=== PATIENT | male | born 1965 | race Caucasian/White ===

== ENCOUNTER → 2017-12-08 09:42 | Outpatient (CLI) | payer OTHER, SELFPAY ==
[2017-12-08 10:35] LABS: Alanine Aminotransferase 28 U/L (12-78); Albumin Level 3.7 gm/dL (3.4-5.0); Albumin/Globulin Ratio 1.2 (1.1-1.8); Alkaline Phosphatase 61 U/L (46-116); Anion Gap 10.3 mEq/L (5-15); Aspartate Amino Transferase 16 U/L (15-37); Bilirubin,Total 0.6 mg/dL (0.2-1.0); Blood Urea Nitrogen 21 mg/dL (7-18); Calcium 8.9 mg/dL (8.5-10.1); Carbon Dioxide 28 mmol/L (21.0-32.0); Chloride 104 mmol/L (98-107); Chol/HDL Ratio 5.5 (1-3.5); Cholesterol 203 mg/dL (140-200); Creatinine,Serum 0.75 mg/dL (0.70-1.30); Estimated Glomerular Filt Rate 110 ml/min (>60); GFR (African American) 133 ML/MIN (>60); Globulin 3.1 gm/dl (1.3-3.2); Glucose 216 mg/dL (74-106); HDL Cholesterol 37 mg/dL (27-67); LDL Cholesterol 148 mg/dL (0-130); Potassium 4.3 mmoL/L (3.5-5.1); Sodium 138 mmol/L (136-145); Total Protein,Serum 6.8 gm/dL (6.4-8.2); Triglycerides 89 mg/dL (30-200); VLDL Cholesterol 18 mg/dL (0-40)
[2017-12-08 10:55] LABS: Hemoglobin A1C 9.8 % (0.0-7.0)
== END ==
PROVIDERS: PCP Physician Assistant; Visit Provider Physician Assistant
DX: E11.9 Type 2 diabetes mellitus without complications (principal); E78.5 Hyperlipidemia, unspecified; I10 Essential (primary) hypertension
CPT/HCPCS: 36415; 80053; 80061; 83036

== ENCOUNTER → 2021-07-11 15:10 | Outpatient (CLI) | payer OTHER, SELFPAY ==
--- NOTE | 2021-07-11 15:15 | XR_ITS ---
PROCEDURE: XR TOE RT MIN 2V CLINICAL INDICATION: TOE PAIN,RT 4th toe toe redness and swelling COMPARISON: No exams were available for comparison FINDINGS: There is mild diffuse soft tissue swelling about the 4th toe. The proximal middle and distal phalanx appear intact. There is no periosteal reaction and there is no air within the soft tissues. The remaining toes are unremarkable. IMPRESSION: Mild diffuse soft tissue swelling 4th toe consistent with cellulitis Dictated by: Dr. Noe Martinez MD 07/12/2021 09:05 Dr. Noe Martinez MD in [place] 07/12/2021 09:05
== END ==
PROVIDERS: PCP Family Medicine; Visit Provider Family Medicine
DX: M79.674 Pain in right toe(s) (principal)
CPT/HCPCS: 73660

== ENCOUNTER → 2021-10-17 13:05 | Outpatient (CLI) | payer OTHER, SELFPAY ==
[2021-10-17 14:06] LABS: Adenovirus,PCR Not Detected (NotDetected); Bordetella Pertussis Not Detected (NotDetected); Chlamydophila Pneumoniae, PCR Not Detected (NotDetected); Coronavirus 229E Not Detected (NotDetected); Coronavirus NL63 Not Detected (NotDetected); Coronavirus OC43 Not Detected (NotDetected); Coronovirus HKU1,PCR Not Detected (NotDetected); Human Metapneumovirus Not Detected (NotDetected); Influenza A, PCR Not Detected (NotDetected); Influenza AH1, 2009 Not Detected (NotDetected); Influenza AH1, PCR Not Detected (NotDetected); Influenza AH3,PCR Not Detected (NotDetected); Influenza B, PCR Not Detected (NotDetected); Mycoplasma Pneumoniae, PCR Not Detected (NotDetected); Parainfluenza 1, PCR Not Detected (NotDetected); Parainfluenza 2, PCR Not Detected (NotDetected); Parainfluenza 3, PCR Not Detected (NotDetected); Parainfluenza 4, PCR Not Detected (NotDetected); Respiratory Syncytial Virus Not Detected (NotDetected); Rhinovirus/Enterovirus Not Detected (NotDetected)
[2021-10-17 14:18] LABS: Basophils # 0.3 K/mm3 (0-0.2); Basophils % 5.3 % (0.1-2.0); Eosinophils # 0.1 K/mm3 (0.0-0.4); Eosinophils % 1.1 % (0.1-12.0); Hematocrit 50.2 % (42.0-52.0); Lymphocytes # 1.2 K/mm3 (0.7-4.5); Lymphocytes % 22.5 % (10-50); Mean Corpuscular HGB Conc 31.9 g/dL (31.8-35.4); Mean Corpuscular Hemoglobin 27.8 pg (27.0-31.2); Mean Corpuscular Volume 87.3 fl (80-94); Mean Platelet Volume 7.3 fl (7.4-10.4); Monocytes # 0.7 K/mm3 (0.1-1.0); Monocytes % 12.7 % (1.7-9.3); Neutrophils # 3.5 K/mm3 (1.8-7.8); Neutrophils % 63.7 % (37.0-80.0); Platelet Count 259 K/mm3 (142-424); Red Blood Count 5.75 M/mm3 (4.60-6.20); Red Cell Distribution Width 13.4 % (11.5-17.5); White Blood Count 5.5 K/mm3 (4.8-10.8)
== END ==
PROVIDERS: PCP Family Medicine; Visit Provider Nurse Practitioner
DX: U07.1 COVID-19 (principal)
CPT/HCPCS: 36415; 85025; 87486; 87581; 87632; 87798; C9803; U0003; U0005

== ENCOUNTER 2022-05-06 18:11 | Inpatient (IN) | payer OTHER, SELFPAY ==
[2022-05-06] VITALS (10 sets, daily range): BP systolic 110–141; BP diastolic 63–79; PULSE 70–84; RESP 12–18; TEMP 36.5–37.2; O2SAT 96–98; BMI 37.5; BMI 34.8
--- NOTE | 2022-05-06 18:11 | ECG_ITS ---
APPROVED REPORT Exam: Resting ECG HR:81 bpm ECG Measurements Heart Rate 81 AXES NM 178 P 56 QRSd 88 QRS 41 QT 317 T 3 QTc 355 Conclusion SINUS RHYTHM NONSPECIFIC T-WAVE ABNORMALITY BORDERLINE ECG UNCONFIRMED REPORT Electronically signed by : Silverio Meier MD 05/09/2022 21:31:25
--- NOTE | 2022-05-06 18:16 | HMH.EDGENADL ---
ED Disposition Clinical Impression: Non-ST elevated myocardial infarction Disposition: Admitted As Inpatient Condition on Discharge: Good Referrals: Sage Holland MD [Primary Care Provider] - - Critical Care Critical Care Time: No Attestation: On , the high probability of a clinically significant, sudden or life threatening deterioration of the following system(s) required my full and direct attention, intervention and personal management. The time I documented below is in addition to time spent performing reported procedures but includes the following listed in this critical care notation. Medical Decision Making - Jw Inquiry Pt receiving controlled substance: No Vital Signs: 05/06/22 18:13 05/06/22 18:19 05/06/22 18:26 Temperature 98.9 F Temperature Source Oral Pulse Rate 82 76 Pulse Rate [Radial] 84 Respiratory Rate 18 12 12 Blood Pressure 141/79 H 115/70 Blood Pressure [Right Arm] 141/79 H Blood Pressure Mean 85 Blood Pressure Mean [Right Arm] 99 Blood Pressure Source [Right Arm] Automatic Cuff Blood Pressure Position [Right Arm] Sitting 02 Sat by Pulse Oximetry 98 97 96 Oxygen Delivery Method Room Air Room Air Room Air 05/06/22 18:41 05/06/22 18:56 Temperature Temperature Source Pulse Rate 79 78 Pulse Rate [Radial] Respiratory Rate 13 Blood Pressure 110/63 115/67 Blood Pressure [Right Arm] Blood Pressure Mean 78 73 Blood Pressure Mean [Right Arm] Blood Pressure Source [Right Arm] Blood Pressure Position [Right Arm] 02 Sat by Pulse Oximetry 97 96 Oxygen Delivery Method Room Air - Lab Data Lab Results 05/06/22 18:17: WBC 8.9, RBC 5.48, Hgb 15.2, Hct 48.1, MCV 87.7, MCH 27.8, MCHC 31.7 L, RDW 13.3, Plt Count 312, MPV 7.5, Neut % (Auto) 67.4, Lymph % (Auto) 21.3, [place] % (Auto) 6.5, Eos % (Auto) 3.1, Baso % (Auto) 1.7, Neut # (Auto) 6.0, Lymph # (Auto) 1.9, [place] # (Auto) 0.6, Eos # (Auto) 0.3, Baso # (Auto) 0.2 05/06/22 18:17: Sodium 136, Potassium 4.4, Chloride 101, Carbon Dioxide 28, Anion Gap 11.0, BUN 21 H, Creatinine 1.00, Estimated Creat Clear 148, Estimated GFR 78, Est GFR ( Amer) 94, Glucose 174 H, Calcium 8.6, Troponin I 0.08 H 05/06/22 19:15: SARS-CoV-2 (PCR) Not detected, Influenza A Untype (PCR) Not detected, Influenza Type B (PCR) Not detected Result diagrams: 05/06/22 18:17 05/06/22 18:17 Orders (Tests/Meds): ED MEDICATIONS Generic Name Dose Route Start Last Admin Trade Name Freq PRN Reason Stop Dose Admin Nitroglycerin 1 gm 05/06/22 19:30 05/06/22 19:25 Nitroglycerin 1 Gm Ointment TD 06/05/22 19:29 1 gm Q6H BENEDICTO Administration Sodium Chloride 10 ml 05/06/22 18:34 Sodium Chloride 0.9% 10ml Flush Syringe IV 06/05/22 18:33 NEEDED PRN Maintain IV Site Discontinued Medications Generic Name Dose Route Start Last Admin Trade Name Freq PRN Reason Stop Dose Admin Aspirin 162 mg 05/06/22 19:21 05/06/22 19:25 Aspirin 81mg Chewable Tablet PO 05/06/22 19:22 162 mg ONCE ONE Administration Ticagrelor 180 mg 05/06/22 19:21 05/06/22 19:25 Ticagrelor 90mg Tablet PO 05/06/22 19:22 180 mg ONCE ONE Administration ORDERS Category Date Time Status Troponin I Q3H Lab 05/06/22 21:45 Ordered Troponin I Q3H Lab 05/07/22 00:45 Ordered - Radiology Data #1 Image(s): Chest Image Reviewed: Yes I have reviewed radiologist's interpretation Ordering Physician: Darren Lucero MD Date of Service: 05/06/22 Procedure(s): XR chest portable Accession Number(s): [id number] cc: Sage Holland MD; Jose Eagle MD~ PROCEDURE INFORMATION: Exam: XR Chest Exam date and time: 05/06/22 06:50 PM Age: 57 years old Clinical indication: Pain; Chest pressure; Additional info: Chest pain TECHNIQUE: Imaging protocol: Radiologic exam of the chest. Views: 1 view. COMPARISON: No relevant prior studies available. FINDINGS: Lungs: Unremarkable. No consolidation.
--- NOTE | 2022-05-06 18:34 | XR_ITS ---
PROCEDURE INFORMATION: Exam: XR Chest Exam date and time: 05/06/22 06:50 PM Age: 57 years old Clinical indication: Pain; Chest pressure; Additional info: Chest pain TECHNIQUE: Imaging protocol: Radiologic exam of the chest. Views: 1 view. COMPARISON: No relevant prior studies available. FINDINGS: Lungs: Unremarkable. No consolidation. Pleural spaces: Unremarkable. No pleural effusion. No pneumothorax. Heart/Mediastinum: Unremarkable. No cardiomegaly. Bones/joints: Unremarkable. IMPRESSION: No acute findings.
[2022-05-06 18:40] LABS: Chloride 101 mmol/L (98-107); Sodium 136 mmol/L (136-145)
[2022-05-06 18:41] LABS: Potassium 4.4 mmoL/L (3.5-5.1)
[2022-05-06 18:42] LABS: Basophils # 0.2 K/mm3 (0-0.2); Basophils % 1.7 % (0.1-2.0); Eosinophils # 0.3 K/mm3 (0.0-0.4); Eosinophils % 3.1 % (0.1-12.0); Hematocrit 48.1 % (42.0-52.0); Hemoglobin 15.2 g/dL (14.1-18.0); Lymphocytes # 1.9 K/mm3 (0.7-4.5); Lymphocytes % 21.3 % (10-50); Mean Corpuscular HGB Conc 31.7 g/dL (31.8-35.4); Mean Corpuscular Hemoglobin 27.8 pg (27.0-31.2); Mean Corpuscular Volume 87.7 fl (80-94); Mean Platelet Volume 7.5 fl (7.4-10.4); Monocytes # 0.6 K/mm3 (0.1-1.0); Monocytes % 6.5 % (1.7-9.3); Neutrophils % 67.4 % (37.0-80.0); Platelet Count 312 K/mm3 (142-424); Red Blood Count 5.48 M/mm3 (4.60-6.20); Red Cell Distribution Width 13.3 % (11.5-17.5); White Blood Count 8.9 K/mm3 (4.8-10.8)
[2022-05-06 18:44] LABS: Calcium 8.6 mg/dl (8.4-10.2); Carbon Dioxide 28 mmol/L (22.0-30.0); Glucose 174 mg/dl (74-100)
--- NOTE | 2022-05-06 18:44 | PC.NURSE ---
XR AT BEDSIDE
[2022-05-06 18:56] LABS: Troponin I 0.08 ng/ml (0.00-0.034)
--- NOTE | 2022-05-06 19:06 | PC.NURSE ---
ER at for patient eval; family at BS
[2022-05-06 19:08] LABS: Blood Urea Nitrogen 21 mg/dl (9-20); Creatinine Clearance Estimated 148 mL/min (50-200); Estimated Glomerular Filt Rate 78 ml/min (>60); GFR (African American) 94 ML/MIN (>60)
--- NOTE | 2022-05-06 19:11 | PC.NURSE ---
1903 ED MD AT BEDSIDE FOR EVALUATION
--- NOTE | 2022-05-06 19:11 | PC.NURSE ---
Paged Dr. Claudio at this time
--- NOTE | 2022-05-06 19:17 | PC.NURSE ---
ER speaking with Dr Claudio at this time
--- NOTE | 2022-05-06 19:19 | PC.NURSE ---
ER speaking with pt at this time
[2022-05-06 19:27] LABS: Coronavirus 19, PCR Not Detected (NotDetected); Influenza A, PCR Not Detected (NotDetected); Influenza B, PCR Not Detected (NotDetected)
--- NOTE | 2022-05-06 20:00 | PC.NURSE ---
ER speaking with pt at this time
--- NOTE | 2022-05-06 20:25 | PC.NURSE ---
PATIENT ADMITTED OBS TO [address] ABEBE WITH DX OF NSTEMI
--- NOTE | 2022-05-06 21:01 | PC.NURSE ---
patient up to floor via wheelchair @ this time.
[2022-05-06 22:19] LABS: Troponin I 3.72 ng/ml (0.00-0.034)
--- NOTE | 2022-05-06 22:20 | PC.NURSE ---
DR. ACUNA IN TO SEE PATIENT. SECOND TROP 3.72 ORDER TO MOVE TO STEPDOWN. PATIENT MOVED TO 218
--- NOTE | 2022-05-06 22:27 | PC.NURSE ---
Pt transferred to [facility], room 218 at this time.
--- NOTE | 2022-05-06 22:27 | HMH.HP ---
*Admission Date: 05/06/22 *Chief complaint: Chest pain *History of present illness: This 56-year-old white male diabetic was working on his tractor today and developed chest pain with radiation to the left arm. He was already diaphoretic. He developed nausea but did not vomit. His family convinced him to come to the emergency room. He was evaluated there and found to have troponin elevation. He is admitted for cardiology consultation. Dr. Claudio has been consulted and is aware of the case. He plans cardiac catheterization in the morning. The patient has been primarily pain-free since his presentation in the emergency room. He is receiving topical night true glycerin. He is receiving blood Brilinta x1 and anticipation of cardiac cath in the morning. He has received aspirin. He has a family history of heart disease and diabetes. He is a former smoker. He has not smoked since October 2011. He is diabetic but does not follow his blood sugars closely. He was last seen by Dr. Holland in July 2021. 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 [facility] History Medical History: Reports:: Diabetes Mellitus Type 2, Hypertension *Have you ever received a pneumonia vaccine?: No *Have you received a flu vaccine this season?: No Other Medical History: Reports: Cataracts Laterality Cases: Bilateral: Arthroscopy Shoulder Other Surgeries: Yes: Colonoscopy (2016), Other Amputation: No Fractures: No - *Social History Last grade of school completed: GED Smoking Status: Former smoker (Quit 2011) Tobacco Type: cigarettes # Packs/Day (cigarettes): 3 Alcohol Intake: never Substance Use Type: denies use *Occupational Status:: employed Housing: apartment Household Members: spouse *Travel in the last 8 weeks: None Family Hx:: Coronary Artery Disease (in his father), Diabetes (In his mother), Heart Attack (A sister), Hypertension Review of Systems - Constitutional Reports fatigue (Reports increased fatigue lately), Denies body ache(s), Denies chills - Eyes Denies blurry vision, Denies change in vision - ENT Reports hearing loss (He does seem to have some hearing loss) - *Cardiovascular Reports chest pain (Just today), Denies shortness of breath, Denies irregular heart rhythm, Denies rapid, pounding, or irregular heartbeat - *Respiratory Denies chest congestion, Denies cough (He did have COVID in September 2021) - *Gastrointestinal Denies abdominal pain, Denies difficulty swallowing - *Genitourinary Denies difficulty urinating - *Musculoskeletal Denies joint pain - Integumentary/Breasts Reports lesions (Recurrent excoriation in the umbilicus area), Denies bleeding lesions - *Neurologic Denies abnormal walking, Denies abnormal speech, Denies seizure-like activity - Psychiatric Denies depression - Endocrine Denies excessive sweating Meds Home Medications Medication Instructions Recorded Confirmed Type dapagliflozin 5 mg tablet 10 mg PO DAILY 05/03/19 05/06/22 History glimepiride 1 mg tablet 4 mg PO BID 05/03/19 05/06/22 History metformin 500 mg tablet 500 mg PO BID 05/03/19 05/06/22 History Dulaglutide [Trulicity] 1.5 mg SQ WEEKLY 05/06/22 05/06/22 History lisinopriL [Lisinopril] 20 mg PO DAILY 05/06/22 05/06/22 History Allergies Allergy/AdvReac Type Severity Reaction Status Date / Time No Known Allergies Allergy Verified 03/22/22 16:17 Exam Vital signs and Labs for Last 24 Hours: Temp Pulse Resp BP Pulse Ox 97.7 F 81 18 115/67 96 05/06/22 21:17 05/06/22 21:17 05/06/22 21:17 05/06/22 21:17 05/06/22 21:51 Laboratory Results - last 24 hr 05/06/22 18:17: WBC 8.9, RBC 5.48, Hgb 15.2, Hct 48.1, MCV 87.7, MCH 27.8, MCHC 31.7 L, RDW 13.3, Plt Count 312, MPV 7.5, Neut % (Auto) 67.4, Lymph % (Auto) 21.3, [place] % (Auto) 6.5, Eos % (Auto) 3.1, Baso % (Auto) 1.7, Neut # (Auto) 6.0, Lymph # (Auto) 1.9, [place] # (Auto) 0.6, Eos # (Auto) 0.3, Baso # (Auto) 0.2 05/06/22 18:17: So
[2022-05-06 22:49] LABS: Hemoglobin A1C 8.3 % (4.0-6.0)
--- NOTE | 2022-05-06 22:55 | PC.NURSE ---
Report given to Yong Duarte RN at this time to assume pt care.
[2022-05-07] VITALS (15 sets, daily range): BP systolic 95–146; BP diastolic 53–72; PULSE 70–95; RESP 16–20; TEMP 36.7–37.1; O2SAT 94–97; BMI 34.8
--- NOTE | 2022-05-07 01:18 | PC.NURSE ---
Lab notified with critical lab trop . Paged / to notify at this time.
--- NOTE | 2022-05-07 05:27 | PC.NURSE ---
Pt has rested well throughout night. Pt reports 0/10 chest pain/discomfort thus far in shift. Pt ambulates to bathroom independently to void. Pt remains on RA. Telemetry has shown normal sinus rhythm throughout shift. HR has been 74-95. Pt's has remained at bedside.
[2022-05-07 07:21] LABS: Chloride 105 mmol/L (98-107)
[2022-05-07 07:22] LABS: Potassium 4.3 mmoL/L (3.5-5.1); Sodium 137 mmol/L (136-145)
[2022-05-07 07:24] LABS: Alanine Aminotransferase 21 U/L (12-78); Alkaline Phosphatase 69 U/L (38-126); Anion Gap 6.3 mEq/L (5-15); Aspartate Amino Transferase 62 U/L (17-59); Bilirubin,Total 0.5 mg/dl (0.2-1.3); Carbon Dioxide 30 mmol/L (22.0-30.0); Cholesterol 177 mg/dl (140-200); Triglycerides 154 mg/dl (30-150); VLDL Cholesterol 31 mg/dL (0-40)
[2022-05-07 07:25] LABS: Albumin Level 3.5 g/dl (3.5-5.0); Albumin/Globulin Ratio 1.3 (1.1-1.8); Calcium 8.1 mg/dl (8.4-10.2); Chol/HDL Ratio 6.3 (1-3.5); Globulin 2.7 g/dL (1.3-3.2); Glucose 158 mg/dl (74-100); HDL Cholesterol 28 mg/dl (40-60); Total Protein,Serum 6.2 g/dl (6.3-8.2)
[2022-05-07 08:04] LABS: Blood Urea Nitrogen 19 mg/dl (9-20); Creatinine Clearance Estimated 153 mL/min (50-200); Estimated Glomerular Filt Rate 88 ml/min (>60); GFR (African American) 106 ML/MIN (>60)
--- NOTE | 2022-05-07 10:22 | ECG_ITS ---
APPROVED REPORT Exam: Resting ECG HR:77 bpm ECG Measurements Heart Rate 77 AXES LA 180 P 31 QRSd 84 QRS 15 QT 336 T 11 QTc 367 Conclusion SINUS RHYTHM NORMAL ECG UNCONFIRMED REPORT Electronically signed by : Silverio Meier MD 05/07/2022 19:02:41
--- NOTE | 2022-05-07 10:44 | PC.WOUNDNOTE ---
NOTIFIED CARDIOLOGY PER TO ASK IF THEY WERE GOING TO SEE PT TODAY. STATED HE WOULD SEE PT THIS EVENING AND IT WAS OKAY FOR PT TO HAVE A REGULAR DIET AND HE DID NOT WANT PT TO BE NPO. STATED PT WILL NOT HAVE A HEART CATH TODAY AND HE WANTED TO CONTINUE CURRENT MEDICATION REGIMEN.
--- NOTE | 2022-05-07 13:57 | HMH.ACPN2 ---
Internal Medicine - PN: Subj *Date: 05/07/22 *Time: 13:57 Interval history: The patient was admitted yesterday from the ER with chest pain with radiation to left arm and sequentially elevated troponins. The patient was started on Brillinta with stated plans for cardiac catheterization 8 AM. This is the nursing note from this morning: NOTIFIED CARDIOLOGY PER TO ASK IF THEY WERE GOING TO SEE PT TODAY. STATED HE WOULD SEE PT THIS EVENING AND IT WAS OKAY FOR PT TO HAVE A REGULAR DIET AND HE DID NOT WANT PT TO BE NPO. STATED PT WILL NOT HAVE A HEART CATH TODAY AND HE WANTED TO CONTINUE CURRENT MEDICATION REGIMEN. The patient stated that he was able to sleep. He states that he feels well today. He complains of feeling warm. His blood pressure and heart rhythm have been stable. He is not had ectopics. He is not been short of breath and has had no chest pain. Exam Vital signs and Labs for Last 24 Hours: Temp Pulse Resp BP Pulse Ox 98.3 F 83 20 108/56 L 94 L 05/07/22 11:40 05/07/22 12:00 05/07/22 12:00 05/07/22 12:00 05/07/22 12:00 Laboratory Results - last 24 hr 05/06/22 18:17: WBC 8.9, RBC 5.48, Hgb 15.2, Hct 48.1, MCV 87.7, MCH 27.8, MCHC 31.7 L, RDW 13.3, Plt Count 312, MPV 7.5, Neut % (Auto) 67.4, Lymph % (Auto) 21.3, [place] % (Auto) 6.5, Eos % (Auto) 3.1, Baso % (Auto) 1.7, Neut # (Auto) 6.0, Lymph # (Auto) 1.9, [place] # (Auto) 0.6, Eos # (Auto) 0.3, Baso # (Auto) 0.2 05/06/22 18:17: Sodium 136, Potassium 4.4, Chloride 101, Carbon Dioxide 28, Anion Gap 11.0, BUN 21 H, Creatinine 1.00, Estimated Creat Clear 148, Estimated GFR 78, Est GFR ( Amer) 94, Glucose 174 H, Calcium 8.6, Troponin I 0.08 H 05/06/22 18:17: Hemoglobin A1c 8.3 H 05/06/22 19:15: SARS-CoV-2 (PCR) Not detected, Influenza A Untype (PCR) Not detected, Influenza Type B (PCR) Not detected 05/06/22 21:50: Troponin I 3.72 H 05/07/22 00:45: Troponin I 10.90 H 05/07/22 06:56: Sodium 137, Potassium 4.3, Chloride 105, Carbon Dioxide 30, Anion Gap 6.3, BUN 19, Creatinine 0.90, Estimated Creat Clear 153, Estimated GFR 88, Est GFR ( Amer) 106, Glucose 158 H, Calcium 8.1 L, Total Bilirubin 0.5, AST 62 H, ALT 21, Alkaline Phosphatase 69, Total Protein 6.2 L, Albumin 3.5, Globulin 2.7, Albumin/Globulin Ratio 1.3, Triglycerides 154 H, Cholesterol 177, VLDL Cholesterol 31, HDL Cholesterol 28 L, Cholesterol/HDL Ratio 6.3 H I & O for Last 24 hours: Intake & Output 05/05/22 05/06/22 05/07/22 05/08/22 11:59 11:59 11:59 11:59 Intake Total 480 / 480 720 / 720 Balance 480 / 480 720 / 720 Weight 257 lb 6.517 oz - *Routine HEENT Exam Head: Present: normocephalic Eye: Present: EOMI, PERRL ENT: Present: mucous membranes moist - *Routine Neck Exam Present: supple. Absent: JVD, carotid bruit, lymphadenopathy - *Routine Respiratory Exam Present: CTA bilaterally - *Routine Cardiovascular Exam Present: RRR, S4. Absent: murmur, tachycardia, irregular rhythm, ectopic - *Routine Abdominal Exam Present: soft, normoactive bowel sounds, obese. Absent: tenderness - *Routine Extremities Exam Absent: cyanosis, clubbing, edema (Only trace) - *Routine Skin Exam Present: warm. Absent: rash - *Routine Neurological Exam Present: alert, oriented X3 Assessment and Plan (1) Non-ST elevated myocardial infarction Status: Acute Category: Medical Code(s): I21.4 - Non-ST elevation (NSTEMI) myocardial infarction (2) Type 2 diabetes mellitus Status: Acute Category: Medical Code(s): E11.9 - Type 2 diabetes mellitus without complications (3) Hypertension Status: Acute Category: Medical Code(s): I10 - Essential (primary) hypertension - Assessment and plan all Dx Assessment and Plan for all problems:: Continue present regimen. Further plans per cardiology.
--- NOTE | 2022-05-07 14:28 | P.CONPHA_ITS ---
[facility] Pharmacy VTE Monitoring - Patient Demographics Admission date: 05/07/22 Report Date: 05/07/22 Time: 14:28 Allergies/Adverse Reactions: Patient Allergies No Known Allergies Allergy (Verified 03/22/22 16:17) Height: 1.83 m Weight: 116.758 kg Patient Problems: Current Active Problems Non-ST elevated myocardial infarction (Acute) Type 2 diabetes mellitus (Acute) Hypertension (Acute) - VTE Risk Labs: VTE Related Lab Results Hgb 15.2 g/dL (14.1-18.0) 05/06/22 18:17 Hct 48.1 % (42.0-52.0) 05/06/22 18:17 Plt Count 312 K/mm3 (142-424) 05/06/22 18:17 BUN 19 mg/dl (9-20) 05/07/22 06:56 Creatinine 0.90 mg/dl (0.66-1.25) 05/07/22 06:56 Estimated Creat Clear 153 mL/min (50-200) 05/07/22 06:56 - Prophylaxis Types of VTE Prophylaxis: Pharmacological Pharmacologic Type: Enoxaparin
--- NOTE | 2022-05-07 16:53 | PC.NURSE ---
PT IS RESTING IN BED. NO COMPLAINTS OF CHEST PAIN OR SOA. ALERT AND ORIENTED X4. PT STATES HE FEELS REALLY GOOD. LUNG SOUNDS CLEAR. ABDOMEN SOFT/NON TENDER WITH ACTIVE BOWEL SOUNDS. EATING AND DRINKING WELL. PT AMBULATES TO THE BATHROOM. NSR ON TELEMETRY. VSS. WILL CONTINUE TO MONITOR.
[2022-05-07 20:14] LABS: POC Glucose,Bedside 253 (70-110)
[2022-05-08] VITALS (25 sets, daily range): BP systolic 106–160; BP diastolic 51–92; PULSE 60–80; RESP 16–20; TEMP 36.1–36.7; O2SAT 93–98; BMI 36.3
--- NOTE | 2022-05-08 | IR_ITS ---
APPROVED REPORT Patient Location: Inpatient [employer]: MAIA Brown RT (R) PROCEDURES Selective coronary angiogram Drug-eluting stent deployment to the ostial proximal mid dominant right coronary INDICATION Acute non-ST elevation myocardial infarction, Coronary artery disease, Informed consent was obtained prior to the procedure. COMPLICATIONS NONE Estimated Blood Loss: LESS THAN 10 ML TECHNIQUE One percent lidocaine used to anesthetize the right anterior aspect of the wrist. The right radial artery was accessed via the Seldinger technique. A 6 [place] sheath was placed in the right radial artery. 2.5 mg of verapamil, 800 mcg of nitroglycerin, 1mg Lidocaine and 5000 U Heparin were given through the arterial sheath. The papa catheter was also used to perform selective coronary angiogram. At the end the diagnostic angiogram therapeutic heparin was administered giving a therapeutic ACT and the guide catheter was placed in the right coronary followed by a Choice PT extra-support wire. A 5 mm x 30 mm resolute Ab stent was deployed at 15 tony reducing the critical stenosis to 0%. An additional 5 mm x 22 mm resolute Ab stent was placed proximal to the first stent yet still overlapping it and then deployed at 18 tony reducing the stenosis to 0%. 800 mcg of intracoronary nitroglycerin was administered. The wire was pulled back and repeat angiography demonstrated excellent and wide patency of the stent with excellent distal transitioning. At the end the procedure the apparatus was removed the sheath was removed good hemostasis was achieved using TR banding patient was transferred to the postop putting in stable condition ANGIOGRAPHIC RESULTS The left main artery Normal The left anterior descending artery Has proximal 20% stenosis with a mid vessel 30 to 40% stenosis. The circumflex artery Is nondominant yet still large vessel and gives rise to a moderate to large high first obtuse marginal artery which has a proximal eccentric 80% stenosis. The large second obtuse marginal artery has proximal and mid vessel 30 and 40% diffuse stenoses The right coronary artery Is a large dominant vessel and has a critical proximal 90% stenosis followed by a large thrombus which extends throughout the mid segment. Distally the posterior descending artery has 10 to 20% stenosis with a posterior lateral branch has eccentric 20 to 30% stenosis The [place] ventriculogram reveals Not performed The left ventricular end-diastolic pressure Not measured IMPRESSION Critical proximal dominant right coronary artery stenosis as described above with successful stenting of the ostial proximal and mid segment reducing the critical stenosis to 0% with 2 contiguous drug-eluting stents Persistent severe stenosis in a large proximal first obtuse marginal artery/ramus intermedius Diffuse moderate disease as described above PLAN 1. Brilinta 90 twice daily plus aspirin 81 mg daily 2. LDL less than 55 to be achieved with high intensity statin 3. Beta-blockers JOSEPH inhibitors 4. Avoidance of tobacco products 5. Cardiac rehabilitation 6. Recommend stress test in 6 weeks to determine if the large ramus intermedius produces significant ischemia. If so this vessel should be revascularized Electronically signed by : Lavon Claudio MD 05/08/2022 10:47:28
--- NOTE | 2022-05-08 04:08 | PC.NURSE ---
Pt A&O x4. Has rested well this shift. Denies any soa or discomfort. VSS. NSR on telemetry. Pt has ambulated to BR x1 and tolerated well. Medications administered per mar. Cardiac consult this AM. Call light within reach. Family at bedside.
--- NOTE | 2022-05-08 08:18 | HMH.ACPN2 ---
Internal Medicine - PN: Subj *Date: 05/08/22 *Time: 08:18 Interval history: Patient states he did sleep some last night. He denies any chest discomfort and shortness of breath. He is ambulated to the bathroom without difficulty. He is awaiting cardiology visit. Exam Vital signs and Labs for Last 24 Hours: Temp Pulse Resp BP Pulse Ox 97.3 F L 73 16 108/65 L 94 L 05/08/22 04:00 05/08/22 06:00 05/08/22 06:00 05/08/22 06:00 05/08/22 06:00 Laboratory Results - last 24 hr 05/07/22 19:59: POC Glucose 253 H I & O for Last 24 hours: Intake & Output 05/05/22 05/06/22 05/07/22 05/08/22 11:59 11:59 11:59 11:59 Intake Total 480 / 480 1680 / 1680 Balance 480 / 480 1680 / 1680 Weight 257 lb 6.517 oz 268 lb 4 oz - Constitutional no acute distress Comments: Appears comfortable - *Routine Respiratory Exam Present: CTA bilaterally (Anteriorly and posteriorly) - *Routine Cardiovascular Exam Present: RRR - *Routine Abdominal Exam Present: soft, normoactive bowel sounds. Absent: tenderness, distended - *Routine Extremities Exam Present: pulses intact. Absent: edema, calf tenderness - *Routine Neurological Exam Present: alert, oriented X3 Assessment and Plan (1) Non-ST elevated myocardial infarction Status: Acute Category: Medical Code(s): I21.4 - Non-ST elevation (NSTEMI) myocardial infarction (2) Type 2 diabetes mellitus Status: Acute Category: Medical Code(s): E11.9 - Type 2 diabetes mellitus without complications (3) Hypertension Status: Acute Category: Medical Code(s): I10 - Essential (primary) hypertension - Assessment and plan all Dx Assessment and Plan for all problems:: Cardiology to see today and will follow their direction.
--- NOTE | 2022-05-08 08:48 | PC.NURSE ---
Pt is off floor for procedure
[2022-05-08 09:59] LABS: CATHL Activated Clotting Time 277 SEC (74-125)
--- NOTE | 2022-05-08 10:52 | HMH.CNCARD ---
History of Present Illness Consult date: 05/08/22 Requesting physician: Sage Holland Consult reason: chest pain Chief complaint: chest pain History of present illness: This is a 56-year-old white gentleman who presented to the emergency department with complaints of chest pain. The patient states that he was out working on his tractor on Sunday and afterwards he had sudden onset of chest pain. He describes this as a pressure sensation in the substernal aspect of his chest and radiated to his left arm and his left shoulder blade. He was nauseated and diaphoretic. The patient denied having any shortness of breath. He states that his family talked him into coming to the emergency department. He states that it lasted for a little bit of time but he was unable to rate the pain. He states that he kind of just walked the pain off and felt better. After arriving at the emergency department the patient was found to have a non-ST elevation myocardial infarction with a troponin max of 10.90. He denies any chest pain or pressure this morning. He denies any shortness of breath or edema. He denies any fever, chills, nausea, vomiting, diarrhea, PND or orthopnea. The patient does have a family history of heart disease in his sister. He is a former smoker. The patient does have hypertension, hyperlipidemia and diabetes. [facility] History I have reviewed the patient's past medical history: Yes Medical History: Reports:: Diabetes Mellitus Type 2, Hyperlipidemia, Hypertension *Have you ever received a pneumonia vaccine?: No *Have you received a flu vaccine this season?: No Other Medical History: Reports: Cataracts Laterality Cases: Bilateral: Arthroscopy Shoulder Other Surgeries: Yes: Colonoscopy (2016), Other Amputation: No Fractures: No - *Social History Last grade of school completed: GED Smoking Status: Former smoker (Quit 2011) Tobacco Type: cigarettes # Packs/Day (cigarettes): 3 Alcohol Intake: never Substance Use Type: denies use *Occupational Status:: employed Housing: apartment Household Members: spouse *Travel in the last 8 weeks: None Family Hx:: Coronary Artery Disease (in his father), Diabetes (In his mother), Heart Attack (A sister), Hypertension Meds Home Medications Medication Instructions Recorded Confirmed Type dapagliflozin 5 mg tablet 10 mg PO DAILY 05/03/19 05/06/22 History glimepiride 1 mg tablet 4 mg PO BID 05/03/19 05/06/22 History metformin 500 mg tablet 500 mg PO BID 05/03/19 05/06/22 History Dulaglutide [Trulicity] 1.5 mg SQ WEEKLY 05/06/22 05/06/22 History lisinopriL [Lisinopril] 20 mg PO DAILY 05/06/22 05/06/22 History Allergies Allergy/AdvReac Type Severity Reaction Status Date / Time No Known Allergies Allergy Verified 03/22/22 16:17 Exam Vital signs and Labs for Last 24 Hours: Temp Pulse Resp BP Pulse Ox 97 F L 72 18 118/71 95 05/08/22 09:42 05/08/22 09:55 05/08/22 09:55 05/08/22 09:55 05/08/22 09:55 Laboratory Results - last 24 hr 05/07/22 19:59: POC Glucose 253 H 05/08/22 09:25: Activated Clotting Time 277 H* I & O for Last 24 hours: Intake & Output 05/05/22 05/06/22 05/07/22 05/08/22 23:59 23:59 23:59 23:59 Intake Total 2160 / 2160 0 / 0 Balance 2160 / 2160 0 / 0 Weight 257 lb 6.4 oz 257 lb 6.517 oz 268 lb 1.314 oz Narrative: EKG is sinus rhythm with a rate of 77. - Constitutional no acute distress, obese - *Routine HEENT Exam Head: Present: normocephalic, atraumatic Eye: Present: EOMI, PERRL ENT: Present: mucous membranes moist - *Routine Neck Exam Present: supple, full ROM, normal carotid upstroke. Absent: JVD, carotid bruit, lymphadenopathy - *Routine Respiratory Exam Present: CTA bilaterally - *Routine Cardiovascular Exam Present: RRR, Normal S1, Normal S2. Absent: murmur, gallop - *Routine Abdominal Exam Present: soft, normoactive bowel sounds. Absent: tenderness, distended - *Routine Extremities Exam Present: full ROM, pul
--- NOTE | 2022-05-08 14:35 | PC.NURSE ---
I notified clinic pharmacy that patient's Brilinta prescription still hadn't been delivered; Verenice stated they would work on it;
--- NOTE | 2022-05-08 14:56 | PC.NURSE ---
rounded on patient. both patient and family asleep in room. call light within reach.
--- NOTE | 2022-05-08 17:14 | PC.NURSE ---
Radialband removed as follows: 1115 - 2mls removed, bloody drainage noted so 2ml placed back into radialband 1200 - 2mls out 1215 - 2mls out 1230 - 2ml out 1245 - 2mls out 1300 - 2mls out 1315 - 2mls out 1345 - radialband removed; telfa and tegaderm in place; no drainage or hematoma noted
--- NOTE | 2022-05-08 17:57 | PC.NURSE ---
Pt is alert and oriented x4. Lungs are clear, bowel sounds active x4. He is s/p heart cath with 2 stents to the rca. He has ambulated to the bathroom independently. He has denied any cp or sob. He's been NSR on telemetry. VSS. Telfa and tegaderm to right radial site is clean, dry and intact. Home meds are locked in the medicine [employer] [facility] the room. Brilinta has been delivered and pt's has it. Bed is locked and in the lowest position, call light is within reach.
[2022-05-08 23:24] LABS: Direct LDL Cholesterol 133 mg/dL (100-129)
[2022-05-09] VITALS: BP 130/70; PULSE 63; PULSE 70; RESP 18; TEMP 36.7; O2SAT 95
[2022-05-09 01:58] LABS: POC Glucose,Bedside 120 (70-110)
[2022-05-09 01:58] LABS: POC Glucose,Bedside 157 (70-110)
[2022-05-09 01:58] LABS: POC Glucose,Bedside 121 (70-110)
[2022-05-09 01:58] LABS: POC Glucose,Bedside 250 (70-110)
[2022-05-09 01:58] LABS: POC Glucose,Bedside 179 (70-110)
[2022-05-09 01:58] LABS: POC Glucose,Bedside 149 (70-110)
[2022-05-09 01:58] LABS: POC Glucose,Bedside 263 (70-110)
[2022-05-09 04:00] VITALS: BP 114/66; PULSE 70; PULSE 72; RESP 16; TEMP 36.7; O2SAT 97
--- NOTE | 2022-05-09 04:58 | PC.NURSE ---
pt has rested well this shift, no complaints of CP or SOA, right radial cath site with telfa and tegaderm in place, C/D/I, SBP 130-135, HR 63-75, has ambulated in hallways and to bathroom
[2022-05-09 05:00] VITALS: BMI 36.3
[2022-05-09 06:14] LABS: Basophils # 0.1 K/mm3 (0-0.2); Basophils % 1.6 % (0.1-2.0); Eosinophils # 0.3 K/mm3 (0.0-0.4); Eosinophils % 3.3 % (0.1-12.0); Hematocrit 47.7 % (42.0-52.0); Lymphocytes # 2.1 K/mm3 (0.7-4.5); Lymphocytes % 26.9 % (10-50); Mean Corpuscular HGB Conc 31.4 g/dL (31.8-35.4); Mean Corpuscular Hemoglobin 28.4 pg (27.0-31.2); Mean Corpuscular Volume 90.3 fl (80-94); Mean Platelet Volume 7.5 fl (7.4-10.4); Monocytes # 0.6 K/mm3 (0.1-1.0); Monocytes % 7.3 % (1.7-9.3); Neutrophils # 4.7 K/mm3 (1.8-7.8); Platelet Count 252 K/mm3 (142-424); Red Blood Count 5.28 M/mm3 (4.60-6.20); Red Cell Distribution Width 13.2 % (11.5-17.5); White Blood Count 7.7 K/mm3 (4.8-10.8)
[2022-05-09 06:26] LABS: Chloride 103 mmol/L (98-107); Potassium 4.2 mmoL/L (3.5-5.1); Sodium 136 mmol/L (136-145)
[2022-05-09 06:29] LABS: Anion Gap 5.2 mEq/L (5-15); Blood Urea Nitrogen 21 mg/dl (9-20); Calcium 8.1 mg/dl (8.4-10.2); Carbon Dioxide 32 mmol/L (22.0-30.0); Creatinine Clearance Estimated 180 mL/min (50-200); Estimated Glomerular Filt Rate 100 ml/min (>60); GFR (African American) 121 ML/MIN (>60); Glucose 159 mg/dl (74-100)
[2022-05-09 08:00] VITALS: BP 145/71; PULSE 80; PULSE 83; RESP 16; TEMP 36.6; O2SAT 96
[2022-05-09 08:10] VITALS: PULSE 81
--- NOTE | 2022-05-09 08:34 | HMH.ACPN2 ---
Internal Medicine - PN: Subj *Date: 05/09/22 *Time: 08:35 Interval history: Patient wanting to go home yesterday. He denies chest pain and shortness of breath. He walked in the hallway without difficulty after cardiac cath. He did have a cardiac cath yesterday which showed the following IMPRESSION Critical proximal dominant right coronary artery stenosis as described above with successful stenting of the ostial proximal and mid segment reducing the critical stenosis to 0% with 2 contiguous drug-eluting stents Persistent severe stenosis in a large proximal first obtuse marginal artery/ramus intermedius Diffuse moderate disease as described above PLAN 1. Brilinta 90 twice daily plus aspirin 81 mg daily 2. LDL less than 55 to be achieved with high intensity statin 3. Beta-blockers JOSEPH inhibitors 4. Avoidance of tobacco products 5. Cardiac rehabilitation 6. Recommend stress test in 6 weeks to determine if the large ramus intermedius produces significant ischemia. If so this vessel should be revascularized Echocardiogram results are pending. Exam Vital signs and Labs for Last 24 Hours: Temp Pulse Resp BP Pulse Ox 97.8 F 83 16 145/71 H 96 05/09/22 08:00 05/09/22 08:00 05/09/22 08:00 05/09/22 08:00 05/09/22 08:00 Laboratory Results - last 24 hr 05/06/22 21:09: POC Glucose 120 H 05/07/22 06:56: LDL Cholesterol Direct 133 H 05/07/22 11:43: POC Glucose 250 H 05/07/22 17:12: POC Glucose 121 H 05/08/22 06:35: POC Glucose 157 H 05/08/22 09:25: Activated Clotting Time 277 H* 05/08/22 12:01: POC Glucose 263 H 05/08/22 16:31: POC Glucose 149 H 05/08/22 21:04: POC Glucose 179 H 05/09/22 05:32: WBC 7.7, RBC 5.28, Hgb 15.0, Hct 47.7, MCV 90.3, MCH 28.4, MCHC 31.4 L, RDW 13.2, Plt Count 252, MPV 7.5, Neut % (Auto) 61.0, Lymph % (Auto) 26.9, [place] % (Auto) 7.3, Eos % (Auto) 3.3, Baso % (Auto) 1.6, Neut # (Auto) 4.7, Lymph # (Auto) 2.1, [place] # (Auto) 0.6, Eos # (Auto) 0.3, Baso # (Auto) 0.1 05/09/22 05:32: Sodium 136, Potassium 4.2, Chloride 103, Carbon Dioxide 32 H, Anion Gap 5.2, BUN 21 H, Creatinine 0.80, Estimated Creat Clear 180, Estimated GFR 100, Est GFR ( Amer) 121, Glucose 159 H, Calcium 8.1 L I & O for Last 24 hours: Intake & Output 05/06/22 05/07/22 05/08/22 05/09/22 11:59 11:59 11:59 11:59 Intake Total 480 / 480 1680 / 1680 1080 / 1080 Balance 480 / 480 1680 / 1680 1080 / 1080 Weight 257 lb 6.517 oz 268 lb 1.314 oz 268 lb 4 oz - Constitutional no acute distress Comments: Sitting up in the bed and appears comfortable - *Routine Respiratory Exam Present: CTA bilaterally (Anteriorly and posteriorly) - *Routine Cardiovascular Exam Present: RRR - *Routine Abdominal Exam Present: soft, normoactive bowel sounds. Absent: tenderness, distended - *Routine Extremities Exam Absent: edema, calf tenderness - *Routine Neurological Exam Present: alert, oriented X3 Assessment and Plan (1) Non-ST elevated myocardial infarction Status: Acute Category: Medical Code(s): I21.4 - Non-ST elevation (NSTEMI) myocardial infarction (2) Type 2 diabetes mellitus Status: Acute Category: Medical Code(s): E11.9 - Type 2 diabetes mellitus without complications (3) Hypertension Status: Acute Category: Medical Code(s): I10 - Essential (primary) hypertension (4) HLD (hyperlipidemia) Status: Acute Category: Medical Code(s): E78.5 - Hyperlipidemia, unspecified (5) Former smoker Status: Acute Category: Social Hx Code(s): Z87.891 - Personal history of nicotine dependence (6) Family history of ischemic heart disease Status: Acute Category: Medical Code(s): Z82.49 - Family history of ischemic heart disease and other diseases of the circulatory system (7) S/P cardiac cath Status: Acute Category: Surgical Code(s): Z98.890 - Other specified postprocedural states - Assessment and plan all Dx Assessment and Plan for all problems:: Discharged today.
--- NOTE | 2022-05-09 10:06 | HMH.PHACLD ---
Tone Luciano has received discharge medication counseling on the following medications: -BRILINTA (TWICE DAILY, BLOOD THINNER, BRUISE/BLEED RISK, BUMP HEAD = GO TO ER TO RULE OUT HEAD BLEED) -ASPIRIN (DAILY, BLOOD THINNER, BLEED/BRUISE RISK, BLEED LOCATION WILL CHANGE APPEARANCE) -ATORVASTATIN (CHOLESTEROL, AT BEDTIME, WATCH FOR MUSCLE PAIN/WEAKNESS) -METOPROLOL (FOR BLOOD PRESSURE, TWICE DAILY, TAKING HALF OF A 25 MG TAB BID (12.5 MG BID), DIZZINESS, LIGHTHEADEDNESS, SLOWED HR) -LISINOPRIL (PATIENT WAS ALREADY TAKING) PATIENT AND VERBALIZED NO ADDITIONAL QUESTIONS AT THIS TIME.
--- NOTE | 2022-05-09 10:14 | HMH.PNCARD ---
Subjective Date: 05/09/22 Time: 09:30 Principal diagnosis: nonstemi, cad Interval history: This is a 57-year-old white gentleman who presented to the emergency department with complaints of chest pain. The patient was having a non-STEMI. He underwent left cardiac catheterization yesterday and had 2 stents to his right coronary artery. The patient had persistent disease to a large first obtuse marginal artery/ramus intermedius that will require him to undergo stress testing in 6 weeks. This morning he denies any chest pain or pressure. He denies any shortness of breath or edema. He denies any fever, chills, nausea, vomiting, diarrhea, PND or orthopnea. Exam Vital signs and Labs for Last 24 Hours: Temp Pulse Resp BP Pulse Ox 97.8 F 81 16 145/71 H 96 05/09/22 08:00 05/09/22 08:10 05/09/22 08:00 05/09/22 08:00 05/09/22 08:00 Laboratory Results - last 24 hr 05/06/22 21:09: POC Glucose 120 H 05/07/22 06:56: LDL Cholesterol Direct 133 H 05/07/22 11:43: POC Glucose 250 H 05/07/22 17:12: POC Glucose 121 H 05/08/22 06:35: POC Glucose 157 H 05/08/22 12:01: POC Glucose 263 H 05/08/22 16:31: POC Glucose 149 H 05/08/22 21:04: POC Glucose 179 H 05/09/22 05:32: WBC 7.7, RBC 5.28, Hgb 15.0, Hct 47.7, MCV 90.3, MCH 28.4, MCHC 31.4 L, RDW 13.2, Plt Count 252, MPV 7.5, Neut % (Auto) 61.0, Lymph % (Auto) 26.9, [place] % (Auto) 7.3, Eos % (Auto) 3.3, Baso % (Auto) 1.6, Neut # (Auto) 4.7, Lymph # (Auto) 2.1, [place] # (Auto) 0.6, Eos # (Auto) 0.3, Baso # (Auto) 0.1 05/09/22 05:32: Sodium 136, Potassium 4.2, Chloride 103, Carbon Dioxide 32 H, Anion Gap 5.2, BUN 21 H, Creatinine 0.80, Estimated Creat Clear 180, Estimated GFR 100, Est GFR ( Amer) 121, Glucose 159 H, Calcium 8.1 L I & O for Last 24 hours: Intake & Output 05/06/22 05/07/22 05/08/22 05/09/22 23:59 23:59 23:59 23:59 Intake Total 2160 / 2160 720 / 720 360 / 360 Balance 2160 / 2160 720 / 720 360 / 360 Weight 257 lb 6.4 oz 257 lb 6.517 oz 268 lb 1.314 oz 268 lb 4 oz - Constitutional no acute distress, obese - *Routine HEENT Exam Head: Present: normocephalic, atraumatic Eye: Present: EOMI, PERRL ENT: Present: mucous membranes moist - *Routine Neck Exam Present: supple, full ROM, normal carotid upstroke. Absent: JVD, carotid bruit, lymphadenopathy - *Routine Respiratory Exam Present: CTA bilaterally - *Routine Cardiovascular Exam Present: RRR, Normal S1, Normal S2. Absent: murmur - *Routine Abdominal Exam Present: soft, normoactive bowel sounds. Absent: tenderness, distended - *Routine Extremities Exam Present: full ROM, pulses intact, normal capillary refill. Absent: cyanosis, clubbing, edema - *Routine Skin Exam Present: intact, warm. Absent: erythema, rash - *Routine Neurological Exam Present: alert, oriented X3, CN II-XII intact. Absent: sensory deficit, motor deficit Progress Note: A&P (1) Non-ST elevated myocardial infarction Status: Acute (2) Type 2 diabetes mellitus Status: Acute (3) Hypertension Status: Acute (4) HLD (hyperlipidemia) Status: Acute (5) Former smoker Status: Acute (6) Family history of ischemic heart disease Status: Acute (7) S/P cardiac cath Status: Acute (8) CAD (coronary artery disease) Status: Chronic Assessment and Plan for All Diagnoses:: Plan: 1. Patient presented to the emergency department with chest pain. He was having a non-STEMI and underwent left cardiac catheterization with 2 stents placed to his right coronary artery. The patient will be on Brilinta and aspirin for dual antiplatelet therapy. 2. The patient has persistent disease to a first obtuse marginal/ramus intermedius that is severe. The patient will need to undergo Myoview stress testing in 6 weeks to see if this lesion is ischemic and requires percutaneous intervention. This will be done on an outpatient basis. 3. Coronary artery disease is stable for now. 4. His blood pressure is well controlled
--- NOTE | 2022-05-09 22:40 | HMH.DCSUM ---
General - General Admission date:: 05/06/22 Discharge date: 05/09/22 HPI HPI: This 56-year-old white male diabetic was working on his tractor today and developed chest pain with radiation to the left arm. He was already diaphoretic. He developed nausea but did not vomit. His family convinced him to come to the emergency room. He was evaluated there and found to have troponin elevation. He is admitted for cardiology consultation. Dr. Claudio has been consulted and is aware of the case. He plans cardiac catheterization in the morning. The patient has been primarily pain-free since his presentation in the emergency room. He is receiving topical night true glycerin. He is receiving blood Brilinta x1 and anticipation of cardiac cath in the morning. He has received aspirin. He has a family history of heart disease and diabetes. He is a former smoker. He has not smoked since October 2011. He is diabetic but does not follow his blood sugars closely. He was last seen by Dr. Holland in July 2021. 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 Hospital Course Hospital Course: The patient was moved to the stepdown unit and cardiology was consulted. His second troponin was elevated and he was taken for a heart cath. He received stents and was started on Brilinta and aspirin. Cardiology recommended a stress test in 6 weeks to determine if the large ramus intermedius produced any significant ischemia. He had no further chest pain or shortness of breath and ambulated without difficulty. He wanted to be discharged home. Cardiology felt he was stable to discharge and would need to follow-up in their office in 1 week. Objective Vital signs: Temp Pulse Resp BP Pulse Ox 97.8 F 81 16 145/71 H 96 05/09/22 08:00 05/09/22 08:10 05/09/22 08:00 05/09/22 08:00 05/09/22 08:00 Narrative: - Constitutional no acute distress - *Routine HEENT Exam Head: Present: normocephalic Eye: Present: EOMI, PERRL ENT: Present: mucous membranes moist - *Routine Neck Exam Present: supple. Absent: JVD, lymphadenopathy - *Routine Respiratory Exam Present: CTA bilaterally. Absent: rhonchi, stridor, wheezes - *Routine Cardiovascular Exam Present: RRR, S4. Absent: murmur, ectopic - *Routine Abdominal Exam Present: soft, normoactive bowel sounds, obese. Absent: tenderness - *Routine Rectal Exam Rectal:: deferred - *Routine Genitalia Exam Genitalia:: deferred - *Routine Extremities Exam Present: edema (Trace bilaterally. Multiple excoriations left lower leg. Likely insect bites.). Absent: cyanosis, clubbing - *Routine Skin Exam Present: warm, lesions (Umbilicus as described and lesions of the left lower leg as described). Absent: rash - *Routine Neurological Exam Present: alert, oriented X3. Absent: motor deficit Results Labs on day of discharge: Labs from last 24 hours 05/09/22 05/09/22 05/08/22 05:32 05:32 21:04 WBC 7.7 RBC 5.28 Hgb 15.0 Hct 47.7 MCV 90.3 MCH 28.4 MCHC 31.4 L RDW 13.2 Plt Count 252 MPV 7.5 Neut % (Auto) 61.0 Lymph % (Auto) 26.9 [place] % (Auto) 7.3 Eos % (Auto) 3.3 Baso % (Auto) 1.6 Neut # (Auto) 4.7 Lymph # (Auto) 2.1 [place] # (Auto) 0.6 Eos # (Auto) 0.3 Baso # (Auto) 0.1 Sodium 136 Potassium 4.2 Chloride 103 Carbon Dioxide 32 H Anion Gap 5.2 BUN 21 H Creatinine 0.80 Estimated Creat Clear 180 Estimated GFR 100 Est GFR ( Amer) 121 Glucose 159 H POC Glucose 179 H Calcium 8.1 L LDL Cholesterol Direct 05/08/22 05/08/22 05/08/22 16:31 12:01 06:35 WBC RBC Hgb Hct MCV MCH MCHC RDW Plt Count MPV Neut % (Auto) Lymph % (Auto) [place] % (Auto) Eos % (Auto) Baso % (Auto) Neut # (Auto) Lymph # (Auto) [place] # (Auto) Eos # (Auto) Baso # (Auto) Sodium Potassium
[2022-05-10 01:32] LABS: POC Glucose,Bedside 146 (70-110)
--- NOTE | 2022-05-10 14:20 | CARE MANAGER ---
Called and spoke with patient regarding post discharge status. 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 He plans to get his labs done on Sunday in preparation of his f/u appointments on Sunday. No complaints or concerns at this time.
== END 2022-05-09 10:50 | disposition home or self-care (01) | DRG 247 ==
LOC: ER 20:15 → 2ND 20:21
PROVIDERS: Internal Medicine; Admitting Provider Family Medicine; Emergency Provider Emergency Medicine; PCP Family Medicine; Visit Provider Family Medicine
PROC: 027035Z Dilation of Coronary Artery, One Artery with Two Drug-eluting Intraluminal Devices, Percutaneous Approach (ICD-10-PCS; principal; 2022-05-08 08:30)
DX: I21.4 Non-ST elevation (NSTEMI) myocardial infarction (principal); Z87.891 Personal history of nicotine dependence; E11.9 Type 2 diabetes mellitus without complications; I10 Essential (primary) hypertension; Z79.84 Long term (current) use of oral hypoglycemic drugs; I25.10 Atherosclerotic heart disease of native coronary artery without angina pectoris; E78.5 Hyperlipidemia, unspecified
CPT/HCPCS: 36415; 71045; 80048; 80053; 80061; 82962; 83036; 84484; 85025; 85347; 92928; 93005; 93306; 93458; 99152; 99285; C1725; C1769; C1876; C9600; C9803; J1644; Q9967; U0003; U0005

== ENCOUNTER → 2022-05-13 09:56 | Outpatient (CLI) | payer OTHER, SELFPAY ==
[2022-05-13 11:06] LABS: Basophils # 0.2 K/mm3 (0-0.2); Basophils % 2.3 % (0.1-2.0); Eosinophils # 0.3 K/mm3 (0.0-0.4); Eosinophils % 3.4 % (0.1-12.0); Hematocrit 48.6 % (42.0-52.0); Hemoglobin 15.2 g/dL (14.1-18.0); Lymphocytes # 1.4 K/mm3 (0.7-4.5); Lymphocytes % 18.3 % (10-50); Mean Corpuscular HGB Conc 31.4 g/dL (31.8-35.4); Mean Corpuscular Hemoglobin 28.1 pg (27.0-31.2); Mean Corpuscular Volume 89.6 fl (80-94); Mean Platelet Volume 7.4 fl (7.4-10.4); Monocytes # 0.6 K/mm3 (0.1-1.0); Monocytes % 7.3 % (1.7-9.3); Neutrophils # 5.4 K/mm3 (1.8-7.8); Neutrophils % 68.7 % (37.0-80.0); Platelet Count 312 K/mm3 (142-424); Red Blood Count 5.43 M/mm3 (4.60-6.20); Red Cell Distribution Width 13.2 % (11.5-17.5); White Blood Count 7.8 K/mm3 (4.8-10.8)
[2022-05-13 12:16] LABS: Alanine Aminotransferase 38 U/L (12-78); Albumin/Globulin Ratio 1.5 (1.1-1.8); Alkaline Phosphatase 91 U/L (38-126); Anion Gap 13.5 mEq/L (5-15); Aspartate Amino Transferase 30 U/L (17-59); Bilirubin,Total 0.9 mg/dl (0.2-1.3); Blood Urea Nitrogen 18 mg/dl (9-20); Calcium 9.9 mg/dl (8.4-10.2); Carbon Dioxide 28 mmol/L (22.0-30.0); Chloride 100 mmol/L (98-107); Estimated Glomerular Filt Rate 88 ml/min (>60); GFR (African American) 106 ML/MIN (>60); Globulin 2.6 g/dL (1.3-3.2); Glucose 175 mg/dl (74-100); Potassium 5.5 mmoL/L (3.5-5.1); Sodium 136 mmol/L (136-145); Total Protein,Serum 6.6 g/dl (6.3-8.2)
== END ==
PROVIDERS: Internal Medicine; PCP Family Medicine; Visit Provider Family Medicine
DX: I25.10 Atherosclerotic heart disease of native coronary artery without angina pectoris (principal)
CPT/HCPCS: 36415; 80053; 85025

== ENCOUNTER → 2022-06-22 06:20 | Outpatient (CLI) | payer OTHER, SELFPAY ==
--- NOTE | 2022-06-22 | CA_ITS ---
APPROVED REPORT Exam: Exercise Treadmill Technologist: CARISA MENG, Ht: 6 ft 0 in Wt: 269 lbs BSA: 2.42 m2 HR: 86 bpm BP: 143/73 mmHg Rhythm: NSR,T WAVE ABNORMALITIES INFERIORLY Indications: Recent NSTEMI Medical History Medical History: HTN, Hyperlipidemia, Diabetic ??? Noninsulin Medications: Lisinopril,,,,, Metoprolol,,,,, Asa,,,,, Metformin,,,,, Atorvastatin,,,,, Ticagrelor,,,,, BRILINTA,,,,, DulaGLUTIDE,,,,, DApagliflozin,,,,, GlimepERIDE,,,,, Allergies: No known drug allergies Cardiac Risk Factors: HTN, Hyperlipidemia, Diabetes (non-insulin) Stress Test Details Test: Lynn HR Resting HR: 88 bpm Max Heart Rate (APMHR): 165.028713 bpm Max HR Achieved: 157 bpm Target HR (85% APMHR): 140.719034 bpm % of APMHR: 95.15 BP Resting BP: 129/67 mmHg Max BP: 210/70 mmHg Recovery BP: 188.0/73.0 mmHg ECG Resting ECG: NSR T WAVE ABNORMALITIES INFERIORLY Clinical Exercise duration: 07:30 min Highest Stage Achieved: Exercise capacity: 10.1 METs Stress ECG Conclusion PATIENT EXERCISED 7:30 INTO STAGE III OF LYNN PROTOCOL. MAX HEART RATE 157 WHICH IS 95% OF PM FOR AGE. MAX BP 210/70. TEST STOPPED DUE TO SOA AND LEG FATIGUE. NO CP. RARE PAC AND PVC. APPROX. 0.5MM HORIZONTAL BUT INCONSISTENT ST DEPRESSION LATERALLY. OTHERWISE NO SIGNIFICANT CHANGES COMPARED TO BASELINE. NON-DIAGNOSTIC GXT DUE TO BASELINE ABNORMALITIES. MYOVIEW IMAGES REPORTED SEPARATELY. Test Summary Stage 3 01:00 14.0 3.4 155 . . . Cardiolite injected REST . . . . . . . Standing REST 11:18 0.0 0.0 88 . 129/ 67 . . Stage 1 01:00 10.0 1.7 109 . . . . Stage 1 02:00 10.0 1.7 120 . . . . Stage 1 03:00 10.0 1.7 129 . 194/ 70 . . Stage 2 01:00 12.0 2.5 138 . . . . Stage 2 02:00 12.0 2.5 138 . . . . Stage 2 03:00 12.0 2.5 148 . 210/ 70 . . Stage 3 . . . . . . . Cardiolite injected Stage 3 01:00 14.0 3.4 155 . . . . Stage 3 01:30 14.0 3.4 156 . . . Stop exercise at 07:30 RECOVERY 01:00 0.0 0.0 141 . . . . RECOVERY 02:00 0.0 0.0 120 . . . . RECOVERY 03:00 0.0 0.0 106 . 188/ 73 . . RECOVERY 04:00 0.0 0.0 107 . 167/ 65 . . RECOVERY 05:00 0.0 0.0 107 . 167/ 65 . . RECOVERY 06:00 0.0 0.0 106 . 178/ 67 . . RECOVERY 07:00 0.0 0.0 101 . 178/ 67 . . RECOVERY 07:32 0.0 0.0 104 . 130/ 62 . . Electronically signed by : Merlin Shepard MD 06/23/2022 10:00:10
--- NOTE | 2022-06-22 06:31 | NM_ITS ---
APPROVED REPORT Exam: Nuclear Stress Test Indication: short of breath Patient Location: Outpatient Stress Tech: Katherin Pan [place] Tech:MAIA Bailey RT(R)(N) Ht: 6 ft 0 in Wt: 273 lbs HR: 88 bpm BP: 129/67 mmHg BSA: 2.43 m2 TID: 0.91 History: short of breath Procedure: Patient exercised on Nasim protocol 7:30 minutes and sec, resting heart rate 88 bpm, resting blood pressure 129/67 mmHg, with exercise maximum heart rate achived was 157 bpm which is 95 % of the maximum predicted heart rate and blood pressure was 210/70 mmHg. Patient denied any complaint of chest pain. Patient has Good exercise capacity, achieved 10.1 METs of workload on treadmill, the blood pressure response to exercise was Hypertensive. Electrocardiogram Resting electrocardiogram shows sinus rhythm nonspecific ST-T changes, with exercise there is less than 1.[address] segment depression noted from the baseline EKG. The EKG portion of the exercise Myoview was nondiagnostic due to baseline abnormal EKG. Cardiac Stress and Resting SPECT Images: Cardiac Stress and Resting SPECT images were obtained using technetium 99m Myoview 31.1 mCi stress and 10.56 mCi at rest. Gated SPECT analysis of segmental wall motion and calculation of the ejection fraction also done. Prone images were also obtained. Cardiac stress and rest SPECT images show uniform myocardial activity without segmental perfusion abnormality, computer derived ejection fraction is 55% with no regional wall motion abnormality, right ventricle is normal size and contractility. Conclusion: 1. The EKG portion of the exercise Myoview was nondiagnostic due to baseline abnormal EKG, patient has good exercise capacity achieved 10.1 METs of workload on treadmill, the blood pressure response to exercise hypertensive, there was no exercise-induced chest discomfort. 2. No scintigraphic evidence of reversible ischemia seen, computer derived ejection fraction is 55% with no regional wall motion abnormality, right ventricle is normal size and contractility. 3. Normal exercise Myoview study except for hypertensive blood pressure response with exercise. Electronically signed by : Merlin Shepard MD 06/23/2022 10:04:24
== END ==
PROVIDERS: PCP Family Medicine; Visit Provider Family Medicine
DX: I21.4 Non-ST elevation (NSTEMI) myocardial infarction (principal); I25.10 Atherosclerotic heart disease of native coronary artery without angina pectoris; I10 Essential (primary) hypertension; E78.5 Hyperlipidemia, unspecified; Z87.891 Personal history of nicotine dependence; Z98.890 Other specified postprocedural states
CPT/HCPCS: 78452; 93017; A9502

== ENCOUNTER 2023-11-22 16:20 | Outpatient (CLI) | payer OTHER, SELFPAY ==
[2023-11-22 17:55] LABS: Alanine Aminotransferase 22 U/L (12-78); Alkaline Phosphatase 103 U/L (38-126); Aspartate Amino Transferase 23 U/L (17-59); Bilirubin,Direct 0.1 mg/dl (0.0-0.4); Bilirubin,Indirect 0.7 mg/dL (0.0-0.9); Bilirubin,Total 0.8 mg/dl (0.2-1.3); Bilirubin,Unconjugated 0.7 mg/dL (0.0-1.1); Chol/HDL Ratio 4.9 (1-3.5); Cholesterol 133 mg/dl (140-200); HDL Cholesterol 27 mg/dl (40-60); Total Protein,Serum 6.5 g/dl (6.3-8.2); Triglycerides 131 mg/dl (30-150); VLDL Cholesterol 26 mg/dL (0-40)
[2023-11-22 18:18] LABS: Direct LDL Cholesterol 78.67 mg/dL (100-129)
== END 2023-11-22 23:59 ==
LOC: LAB 16:21
PROVIDERS: PCP Family Medicine; Visit Provider Physician Assistant
DX: I25.10 Atherosclerotic heart disease of native coronary artery without angina pectoris (principal); I10 Essential (primary) hypertension; E78.2 Mixed hyperlipidemia; E11.9 Type 2 diabetes mellitus without complications; Z79.84 Long term (current) use of oral hypoglycemic drugs
CPT/HCPCS: 36415; 80061; 80076

== ENCOUNTER 2024-10-19 07:42 | Emergency (ER) | payer OTHER, SELFPAY ==
[2024-10-19 07:51] VITALS: BP 137/67; PULSE 95; RESP 16; TEMP 36.9; O2SAT 97; BMI 35.6
[2024-10-19 08:00] VITALS: BP 127/67; PULSE 85; O2SAT 96
--- NOTE | 2024-10-19 08:14 | XR_ITS ---
PROCEDURE INFORMATION: Exam: XR Chest Exam date and time: 10/19/2024 8:13 AM Age: 59 years old Clinical indication: Cough; Prior surgery; Surgery date: 6+ months; Surgery type: Stents; Additional info: Cough, inspiratory L sided and expiratory wheezes, former smoker TECHNIQUE: Imaging protocol: Radiologic exam of the chest. Views: 2 views. COMPARISON: CR XR CHEST PORTABLE 05/06/2022 6:50 PM FINDINGS: Lungs: Unremarkable. No consolidation. Pleural spaces: Unremarkable. No pleural effusion. No pneumothorax. Heart/Mediastinum: Unremarkable. No cardiomegaly. Bones/joints: Unremarkable. IMPRESSION: No acute findings.
--- NOTE | 2024-10-19 08:19 | PC.NURSE ---
I rounded on the pt and took him a dr pepper with ice. I helped him reposition in the bed and gave him a pillow. no other needs voiced. no new complaints. call joy in reach.
[2024-10-19 08:30] VITALS: BP 141/69; PULSE 79; O2SAT 95
--- NOTE | 2024-10-19 08:30 | HMH.EDGENADL ---
Discharge Plan Disposition Patient Disposition: Home, Self-Care Prescriptions Prescriptions: New budesonide-formoterol 160-4.5 mcg/actuation HFA aerosol inhaler 2 inh inhalation BID Qty: 10.2 0RF prednisone 20 mg tablet 40 mg PO DAILY 5 Days Qty: 10 0RF doxycycline monohydrate 100 mg capsule 100 mg PO BID 5 Days Qty: 10 0RF No Action Trulicity 4.5 mg/0.5 mL pen injector See Rx Instructions .ROUTE .COMPLEX Patient Comments: INJECT 4.5 MG SUBCUTANEOUS ONCE WEEKLY 84 Rx Instructions: per order Jardiance 25 mg tablet 25 mg PO DAILY Patient Comments: TAKE 1 TABLET BY MOUTH EVERY DAY FOR 90 DAYS metformin 500 mg tablet 500 mg PO BID Farxiga 5 mg tablet 10 mg PO DAILY glimepiride 1 mg tablet 4 mg PO DAILY atorvastatin 40 mg tablet 40 mg PO HS Qty: 90 1RF lisinopril 20 mg tablet See Rx Instructions .ROUTE .COMPLEX Qty: 90 3RF Dose Instruction: TAKE 1 TABLET BY MOUTH EVERY DAY FOR HIGH BLOOD PRESSURE Rx Instructions: TAKE 1 TABLET BY MOUTH EVERY DAY FOR HIGH BLOOD PRESSURE metoprolol succinate 50 mg tablet extended release 24 hr See Rx Instructions .ROUTE .COMPLEX Qty: 90 3RF Dose Instruction: TAKE 1 TABLET BY MOUTH EVERY DAY Rx Instructions: TAKE 1 TABLET BY MOUTH EVERY DAY aspirin 81 MG tablet,delayed release (DR/EC) 81 mg PO DAILY 0RF Referrals Follow up/Referrals: Sage Holland MD [Primary Care Provider] - See instructions Activity Restrictions/Add. Instructions Additional Instructions/Restrictions: Call your family doctor to establish care for this visit to the emergency department and schedule follow-up within 48 hours to ensure improvement. If you have any worsening of your condition or any other concerning signs or symptoms, return to the emergency department or your primary care doctor for further evaluation. Prednisone each morning for the next 5 days. Antibiotic twice daily for the next 5 days. Inhaler as prescribed. Follow-up with pulmonology. Clinical Impressions Clinical Impression: Influenza A, Reactive airway disease with acute exacerbation Stand Alone Forms Stand Alone Forms: Work/School Release Print Language Print Language: [place] Discharge ED Provider: Justin Slade General Adult HPI General Chief complaint: Upper Respiratory Infection Stated complaint: weakness, fever, congestion Time Seen by Provider: 10/19/24 07:44 Mode of Arrival: Ambulatory Source of Information: Patient and Spouse Limitations: No Limitations Description of Symptoms (Recalled from ER Triage Doc. by RN): pt reports feeling bad since 10/13. pt c/o fatigue, myalgia, chest congestion with a productive cough and feeling feverish. pt states he has had two negative at home covid tests. History of Present Illness HPI narrative: Please note that above description of symptoms, in this electronic medical record under categorization of recalled from ER triage doctor by RN are reflective of an initial nursing assessment, however, is not reflective of my full history and physical exam that was personally taken and clarified. Consequentially, this preceding description of symptoms, which may include the patient's categorized chief complaint in the EMR, do not reflect my personal clinical impression, and the ultimate description of history of present illness and patient stated complaints should be deferred to this section of the note. Unless stated otherwise or congruent with this section of the note, additional signs, symptoms, or incongruence should be interpreted as inaccurate with my clinical impression. Related Data Home Medications ?Medication ?Instructions ?Recorded ?Confirmed dapagliflozin propanediol 5 mg 10 mg PO DAILY Diabetes 05/03/19 10/19/24 tablet (Farxiga) metformin 500 mg tablet 500 mg PO BID Diabetes 05/03/19 10/19/24 glimepiride 1 mg tablet 4 mg PO DAILY diabetes 11/01/23 10/19/24 dulaglutide 4.5 mg/0.5 mL See Rx Instructions .Route .COMPLEX 05/01/24 10/19/24 subcutaneous pen injector (Trulicity) empagliflozin 25 mg tablet 25 mg PO DAILY 05/01/24 10/19/24 (Jardiance) Previous Rx's ?Medication ?Instructions ?Recorded aspirin 81 mg tablet,delayed 81 mg PO DAILY 05/09/22 release atorvastatin 40 mg tablet 40 mg PO HS #90 tabs 04/09/23 lisinopril 20 mg tablet See Rx Instructions .Route 06/19/24 .COMPLEX #90 tabs metoprolol succinate 50 mg See Rx Instructions .Route 06/19/24 tablet,extended release 24 hr .COMPLEX #90 tabs budesonide-formoterol HFA 160 2 inh inhalation BID #10.2 grams 10/19/24 mcg-4.5 mcg/actuation aerosol inhaler doxycycline monohydrate 100 mg 100 mg PO BID 5 days #10 caps 02/02/25 capsule prednisone 20 mg tablet 40 mg (2 x 20 mg) PO DAILY 5 days 10/19/24 #10 tabs Allergies Allergy/AdvReac Type Severity Reaction Status Date / Time No Known Allergies Allergy Verified 10/19/24 08:02 [facility] Disclaimer: The information contained in this section may have been updated after the patient was seen, as this information can be updated by other users. Medical History CAD (coronary artery disease) CAD (coronary artery disease) Former smoker HLD (hyperlipidemia) Hypertension Type 2 diabetes mellitus Non-ST elevated myocardial infarction Surgical History History of coronary artery stent placement APR 2022-RCA Family History Other Diabetes Hypertension Social History Smoking Status: Former smoker tobacco type: cigarettes packs per day: 3 alcohol intake: never substance use type: denies use current occupational status: employed Travel in the last 8 weeks: None household members: spouse housing: apartment Have you lived/traveled outside [place] in past 30 days?: No Contact w/someone who lives/traveled outside [place] past 30 days?: No Exposure to someone with infectious disease in past 14 days?: No Do you have a fever (greater than 100.4 F or 38 C)?: No Have you tested positive for COVID-19: No Exposed to someone with COVID-19 in past 14 days?: No Do you have a sore throat?: No Do you have a cough?: No Do you have any weakness?: Yes Do you have any diarrhea?: No Are you experiencing any unusual bleeding?: No Do you have any muscle aches/pain?: No Do you have any abdominal pain?: No Are you experiencing loss of taste or smell?: No Other Medical History Have you received the Flu Vaccine for this season: No Have you received the Pneumonia Vaccine: No ROS Obtained: Yes All systems reviewed & no additional complaints except as documented Physical Exam General General appearance: alert and in no apparent distress Head Head exam: atraumatic and normocephalic Eye Eye exam: Present normal appearance, PERRL and EOMI Neck Neck exam: Present normal inspection, full ROM and trachea midline Respiratory Respiratory exam: Present wheezes (Bilateral expiratory wheezes heard throughout expiratory phase. Inspiratory wheezes heard primarily on the left posterior lung sethi); Absent respiratory distress, stridor, accessory muscle use or prolonged expiratory phase Cardiovascular Cardiovascular exam: Present regular rate, normal rhythm and other (Pulses equal symmetric in upper and lower extremities) Abdominal Exam Abdominal exam: Present soft; Absent distention, tenderness, guarding, rebound, rigidity or pulsatile mass Extremities Exam Extremities exam: Absent edema Neurological Exam Neurological exam: Present alert, oriented X3 and CN II-XII intact; Absent motor sensory deficit Skin Skin exam: Present warm and dry; Absent diaphoresis or erythema Medical Decision Making Medical Records Medical records reviewed: Yes I reviewed the patient's medical records. Screening: Per USPSTF and CDC recommendations, given the prevalence of disease in our region, it is our hospital?s policy to screen for HIV and viral Hepatitis for all patients aged 18 and over and those with ongoing risk factors. Jw Inquiry Pt receiving controlled substance: No Jw was queried for this patient: No Vital Signs: 10/19/24 07:51 10/19/24 08:00 10/19/24 08:30 Temperature 98.4 F Temperature Source Oral Pulse Rate 85 79 Pulse Rate [Left] 95 H Respiratory Rate 16 Blood Pressure 127/67 141/69 H Blood Pressure [Right Arm] 137/67 Blood Pressure Mean [Right Arm] 90 Blood Pressure Source [Right Arm] Automatic Cuff Blood Pressure Position [Right Arm] Sitting 02 Sat by Pulse Oximetry 97 96 95 Oxygen Delivery Method Room Air Room Air Room Air 10/19/24 09:00 10/19/24 09:54 Temperature 98.4 F Temperature Source Pulse Rate 80 81 Pulse Rate [Left] Respiratory Rate 18 Blood Pressure 128/70 139/67 Blood Pressure [Right Arm] Blood Pressure Mean [Right Arm] Blood Pressure Source [Right Arm] Blood Pressure Position [Right Arm] 02 Sat by Pulse Oximetry 100 Oxygen Delivery Method Room Air Room Air Lab Data Lab Results 10/19/24 08:00: SARS-CoV-2 (PCR) Not detected, Influenza A Untype (PCR) Detected A, Influenza Type B (PCR) Not detected Orders (Tests/Meds): ED MEDICATIONS Discontinued Medications Generic Name Dose Route Start Last Admin Trade Name Freq PRN Reason Stop Dose Admin Albuterol/Ipratropium 9 ml 10/19/24 08:14 10/19/24 08:34 Ipratropium/Albuterol 3 Ml Neb IH 10/19/24 08:15 9 ml ONCE ONE Administration Doxycycline Hyclate 100 mg 10/19/24 08:14 10/19/24 08:34 Doxycycline Hycl 100 Mg Tablet PO 10/19/24 08:15 100 mg ONCE ONE Administration Prednisone 40 mg 10/19/24 08:14 10/19/24 08:33 Prednisone 20mg Tab PO 10/19/24 08:15 40 mg ONCE ONE Administration ORDERS Category Date Time Status CXR 2 view (NOT portable) [XR chest 2V] Stat Exams 10/19/24 08:14 Completed Rapid PCR Covid and Flu A/B Stat Lab 10/19/24 08:00 Completed Medical Decision Narrative: 59-year-old male history of hypertension, hyperlipidemia, CAD and SC status post stenting, type 2 diabetes, previous extensive smoking history (approximately 60 pack years) with no formal diagnosis of COPD presenting with shortness of breath, cough, body aches, fatigue. This has been going on for about 7 days at this point. Does not seem to be getting better, may be getting mildly worse. He does state that his cough is gotten worse. Initially nonproductive, now is producing dark, thick, green to yellow sputum. Thinks he may be having fevers chills, no objective temperatures have been measured. No chest pain, nausea, vomiting, GI symptoms, any other concerning symptoms. Patient not currently smoking and never been on home oxygen. History was obtained via conversation with patient and . On arrival, patient hemodynamically stable, alert, oriented x4, appropriate, GCS 15, moving all extremities spontaneously, pupils equal and reactive to light. Full physical exam performed and significant for very clinically well-appearing patient. Speaking in full sentences, laughing, very pleasant. Intermittently coughing, especially on deep inspiration while performing lung auscultation. Lung auscultation significant for expiratory wheezes heard throughout the entire expiratory phase. Inspiratory phase wheezes heard posteriorly on the left side. Differential includes bronchitis, pneumonia, COPD exacerbation, undiagnosed chronic lung disease, less likely to be ACS, SC, CHF, PE, among others. Patient placed on continuous cardiac monitoring and continuous pulse ox with initial blood pressure 137/67, heart rate 95, saturation 97% on room air. Patient was given DuoNebs, Solu-Medrol, doxycycline for symptomatic management and correction of underlying abnormalities. Workup independently interpreted and significant for flu positive. Labs were considered including CBC, chemistry, VBG. Given patient so well-appearing, nontachycardic, no oxygen requirement, speaking full sentences, clinically well, not deemed necessary. On independent interpretation of imaging, no acute intrathoracic disease. See radiology read for full review of final results. On reevaluation, patient's lungs sound remarkably better. This is consistent with reactive airway disease whether asthma or COPD. Patient and comfortable home-going with steroid, antibiotic, inhaler, outpatient follow-up. Because patient at baseline without signs or symptoms of clinical decompensation, deemed appropriate for discharge. Results were relayed to patient who voiced understanding and were agreeable to outpatient management and follow up. I discussed my clinical impression with patient and answered all questions. At this time, the evidence for any other entities in the differential is insufficient to warrant any further testing or ED observation. This was explained as well. Advisory was given that persistent or worsening symptoms require further evaluation. I confirmed the understanding of this discussion. 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 Electronic box toe flanger stitchdowns of the spoken language may permit errors. Although I have reviewed the note, some errors may still exist. Critical Care Critical Care Time Critical Care Time: No
[2024-10-19] MEDS: predniSONE 20MG TAB 40 MG PO (08:33)
[2024-10-19 08:34] LABS: Coronavirus 19, PCR Not Detected (NotDetected); Influenza B, PCR Not Detected (NotDetected)
[2024-10-19] MEDS: IPRATROPIUM/ALBUTEROL 3 ML NEB 9 ML IH (08:34)
[2024-10-19] MEDS: DOXYCYCLINE HYCL 100 MG TABLET PO (08:34)
[2024-10-19 09:00] VITALS: BP 128/70; PULSE 80; O2SAT 100
[2024-10-19 09:10] LABS: Influenza A, PCR Detected (NotDetected)
[2024-10-19 09:54] VITALS: BP 139/67; PULSE 81; RESP 18; TEMP 36.9; O2SAT 96
== END 2024-10-19 09:56 | disposition home or self-care (01) ==
PROVIDERS: Emergency Provider Emergency Medicine; PCP Family Medicine
DX: J45.901 Unspecified asthma with (acute) exacerbation (principal); J10.1 Influenza due to other identified influenza virus with other respiratory manifestations; R06.02 Shortness of breath; R50.9 Fever, unspecified; R53.1 Weakness; R09.89 Other specified symptoms and signs involving the circulatory and respiratory systems; M79.10 Myalgia, unspecified site; R05.9 Cough, unspecified; F17.210 Nicotine dependence, cigarettes, uncomplicated; I10 Essential (primary) hypertension; I25.10 Atherosclerotic heart disease of native coronary artery without angina pectoris; E11.9 Type 2 diabetes mellitus without complications; E87.5 Hyperkalemia
CPT/HCPCS: 71046; 87636; 94640; 99283; J7620

== ENCOUNTER 2024-11-25 09:30 | Outpatient (CLI) | payer OTHER, SELFPAY ==
--- NOTE | 2024-11-25 | CA_ITS ---
APPROVED REPORT Exam: Exercise Treadmill Technologist: Fernanda Garcia Ht: 6 ft 0 in Wt: 253 lbs BSA: 2.35 m2 HR: 84 bpm BP: 132/76 mmHg Stress Test Details Test: Exercise stress testing was performed using a Nasim protocol. HR Resting HR: 84 bpm Max Heart Rate (APMHR): 163.850427 bpm Max HR Achieved: 155 bpm Target HR (85% APMHR): 138.907158 bpm % of APMHR: 95.09 Recovery HR: 108 bpm BP Resting BP: 132.0/76.0 mmHg Max BP: 186.0/74.0 mmHg Recovery BP: 138.0/73.0 mmHg ECG Resting ECG: Normal sinus rhythm Stress ECG Conclusion Symptoms: Leg fatigue Arrhythmias/Ectopy: PVC ST-T Changes: Less than [address] depression. Conclusion: Normal EKG response to exercise. Electronically signed by : Kinga Bang MD 11/30/2024 20:46:07
== END 2024-11-25 23:59 | disposition home or self-care (01) ==
LOC: RT 09:30
PROVIDERS: PCP Family Medicine; Visit Provider Family Medicine
DX: I25.10 Atherosclerotic heart disease of native coronary artery without angina pectoris (principal); I25.2 Old myocardial infarction
CPT/HCPCS: 93017; 93018